=== PATIENT | female | born 1995 | race African-American/Black ===

== ENCOUNTER 2018-05-09 16:27 | Inpatient (IN) ==
[2018-05-09] MEDS ORDERED: Sod Chloride 0.9% Inj 1,000 ML IV.SIG SCH (17:30)
[2018-05-09] MEDS ORDERED: HYDROmorphone PF Inj 1 MG/ML Ampul IV.PUSH ONE (17:30)
--- NOTE | 2018-05-09 17:37 | ED ---
HPI General Chief complaint: Sickle Cell Stated complaint: sickle cell Time Seen by Provider: 05/09/18 17:16 Source: patient and RN notes reviewed Mode of arrival: wheelchair Limitations: no limitations History of Present Illness HPI narrative: 23-year-old female presents to the emergency department for evaluation of low back pain that started this morning. Patient's currently states her pain is 9/10. She denies any trauma. Patient has history of sickle cell disease. She states that she gets pain in several different locations, but has had pain here before. Patient reports difficulty ambulating secondary to the pain. Patient is currently living in [place]. 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 Patient's takes hydrocodone at home for pain. She took this earlier with no improvement. She denies any urinary symptoms. No fevers or chills. No history of IV drug use. No loss of bowel or bladder control. No saddle anesthesias. Patient denies . Moderate severity. Onset (ago): hour(s) Location: back Radiation: non-radiation Severity: moderate Severity scale (1-10): 9 Quality: aching and sharp Pain Consistency: constant Relieving factors: none Exacerbating factors: none Associated symptoms: Reports denies other symptoms; Denies confusion, chest pain , cough, diaphoresis, fever/chills, headaches, loss of appetite, malaise, nausea /vomiting, rash, seizure, shortness of breath, syncope and weakness Treatments prior to arrival: Reports other (Hydrocodone) Related Data Home Medications Medication Instructions Recorded Confirmed folic acid 1 mg PO DAILY 05/09/18 05/09/18 gabapentin 300 mg PO DAILY 05/09/18 05/09/18 hydroxyurea (sickle cell) 1,000 mg PO DAILY 05/09/18 05/09/18 Allergies Allergy/AdvReac Type Severity Reaction Status Date / Time No Known Allergies Allergy Verified 05/09/18 18:40 Review of Systems ROS: all other systems reviewed are negative [facility] Medical History Medical History Pneumonia (Acute) Pneumonia affecting in first trimester (Acute) Sickle cell anemia (Acute) Social History Social History Substance History: No History of Abuse Second Hand Smoke Exposure: No Smoking Status: Never smoker How Often Do You Have a Drink Containing Alcohol: Never Recent Travel in [facility] within the Last 8 Weeks: No Recent Out of Country Travel within the Last 8 Weeks: No Exam Narrative Exam Narrative: GENERAL: Well-nourished, well-developed female patient, afebrile. SKIN: Focused skin assessment warm/dry. No rashes. HEAD: Normocephalic. Atraumatic. EYES: No scleral icterus. No injection or drainage ENT: Mucosa pink and moist. No erythema or exudates. No uvular edema. No uvular , palatal, or tonsillar deviation. Airway patent. Nasal turbinates appear normal without nasal blood, purulent drainage or septal hematoma. Bilateral tympanic membranes clear without erythema or perforation. NECK: Supple, trachea midline. No JVD or lymphadenopathy. CARDIOVASCULAR: Regular rate and rhythm without murmurs, gallops, or rubs. Bilateral radial and pedal pulses are 2+ RESPIRATORY: Breath sounds equal bilaterally. No accessory muscle use. Lung sounds are clear to auscultation GASTROINTESTINAL: Abdomen soft, non-tender, nondistended. MUSCULOSKELETAL: No cyanosis, or edema. Bilateral upper and lower extremity strength 5/5. All extremities are neurovascularly intact. BACK: No obvious deformity. No CVA tenderness. Patient has tenderness over midline lumbar spine, bilateral lumbar paraspinal musculature. Course Initial Documented Vital Signs Temperature 98.7 F 05/09/18 16:31 Pulse Rate 84 05/09/18 16:31 Respiratory Rate 17 05/09/18 16:31 Blood Pressure 120/54 L 05/09/18 16:31 Pulse Oximetry 97 05/09/18 16:31 Last Documented Vital Signs Temperature 98.7 F 05/09/18 16:31 Pulse Rate 80 05/09/18 18:33 Respiratory Rate 18 05/09/18 18:33 Blood Pressure 99/57 L 05/09/18 18:33 Pulse Oximetry 95 05/09/18 18:33 Medical Decision Making [facility] Narrative Medical decision making narrative: 23-year-old female with history of sickle cell disease presents to the emergency department for evaluation of low back pain since this morning. IV access is obtained. CBC, CMP, UA, urine , reticulocyte count are ordered and pending. Patient is given normal saline 1 L IV bolus, Dilaudid 0.5 mg IV, Zofran 4 mg IV. CBC shows hgb of 9.2, hct 26.8. CMP shows no acute abnormality. Retic count is 8.4; absolute retic is 261.9. UA is negative for acute infection. UPT is negative. Patient is given additional ketorolac 30 mg IV, hydrocodone 5/325 mg, 2nd L IV NS. Upon re-examination, patient still report significant pain, difficulty ambulating. Patient will be admitted for observation for sickle cell. Dr. Gooden accepted admission. Medical Screen Exam Complete: Yes Emergency Medical Condition: Yes Differential Diagnosis Differential Diagnosis: Sickle cell crisis versus anemia versus UTI Medical Records Medical records reviewed: Yes I reviewed the patient's medical records. Lab Data Result diagrams: 05/09/18 17:40 05/09/18 17:40 POC Results POC Urine Results Negative Lab Results 05/09/18 05/09/18 05/09/18 Range/Units 17:40 17:40 19:48 WBC 8.9 (4.0-11.0) th/mm3 RBC 3.11 L (4.00-5.30) mil/mm3 Hgb 9.2 L (11.6-15.3) gm/dL Hct 26.8 L (35.0-46.0) % MCV 86.2 (80.0-100.0) fL MCH 29.4 (27.0-34.0) pg MCHC 34.2 (32.0-36.0) % RDW 18.6 H (11.6-17.2) % Plt Count 499 H (150-450) th/mm3 MPV 7.8 (7.0-11.0) fL Prelim Diff (Auto) Slide review pending Neut % (Auto) 48.2 (16.0-70.0) % Lymph % (Auto) 43.3 (9.0-44.0) % [place] % (Auto) 6.7 (0.0-8.0) % Eos % (Auto) 1.1 (0.0-4.0) % Baso % (Auto) 0.7 (0.0-2.0) % Neut # (Auto) 4.3 (1.8-7.7) th/mm3 Lymph # (Auto) 3.8 (1.0-4.8) th/mm3 [place] # (Auto) 0.6 (0.0-0.9) th/mm3 Eos # (Auto) 0.1 (0.0-0.4) th/mm3 Baso # (Auto) 0.1 (0.0-0.2) th/mm3 WBC Differential Manual diff final Seg Neuts % (Manual) 49 (16-70) % Lymphocytes % (Manual) 44 (9-44) % Monocytes % (Manual) 5 (0-8) % Eosinophils % (Manual) 2 (0-4) % Abs Neuts (Manual) 4.4 (1.8-7.7) th/mm3 Nucleated RBCs/100 WBC 2 H (0-0) /100 WBC Differential Comment . Platelet Estimate High H (Normal) Platelet Morphology Normal (Normal) Sickle Cells 2+ H (None) Target Cells 2+ H (None) [place] Bodies Present H (None) Retic Count 8.4 H (0.4-3.0) % Absolute Retic 261.9 H (20.0-150.0) mil/L Sodium 140 (136-145) meq/L Potassium 3.7 (3.5-5.1) meq/L Chloride 106 (98-107) meq/L Carbon Dioxide 27.3 (21.0-32.0) meq/L Anion Gap 7 (5-15) meq/L BUN 6 L (7-18) mg/dL Creatinine 0.57 (0.50-1.00) mg/dL Estimated GFR Greater than 89 (>89) mL/min Random Glucose 80 (74-106) mg/dL Calcium 8.5 (8.5-10.1) mg/dL Total Bilirubin 1.7 H (0.2-1.0) mg/dL AST 27 (15-37) U/L ALT 20 (10-53) U/L Alkaline Phosphatase 72 (45-117) U/L Total Protein 7.3 (6.4-8.2) g/dL Albumin 4.3 (3.4-5.0) g/dL Urine Color Yellow (Yellw/Straw) Urine Clarity Clear (Clear) Urine pH 5.0 (5.0-8.5) Ur Specific [place] 1.009 (1.002-1.035) Urine Protein Negative (Neg-Trace) mg/dL Urine Glucose (UA) Negative (Negative) mg/dL Urine Ketones Negative (Negative) mg/dL Urine Occult Blood Negative (Negative) Urine Nitrate Negative (Negative) Urine Bilirubin Negative (Negative) Urine Urobilinogen Less than 2 (Less than 2) mg/dL Ur Leukocyte Esterase Negative (Negative) Urine RBC Less than 1 (0-3) /hpf Urine WBC 1 (0-5) /hpf Ur Squamous Epith Cells 1 (0-5) /hpf Urine Mucus Few H (Occasional) /lpf Micro UA Comment Culture not ind Ur Microscopic Review Not Reportable Urine Culture Comments Culture not ind Discharge Plan Discharge Disposition Patient Disposition: ED Admit(ED Internal Use Only) Discharge Order Discharge Orders: ED Use Only Admit Order (Routine); Ordered 05/09/18 Ordered By: Keerthi Grijalva Discharge Details Diagnosis: Acute sickle cell crisis Physicians Team ED Provider: Maira Crowder ED Midlevel Provider: Keerthi Grijalva Primary Care Provider: UNKNOWN, Rxs /Orders / Referrals /Forms Prescriptions: No Action gabapentin 300 mg Capsule 300 mg PO DAILY RF: 0 folic acid 1 mg Tablet 1 mg PO DAILY RF: 0 hydroxyurea (sickle cell) 1,000 mg Tablet 1,000 mg PO DAILY RF: 0 Status ED Status: Admitted Observation Patient
[2018-05-09 18:28] LABS: Baso # (Auto) 0.1 th/mm3 (0.0-0.2); Baso % (Auto) 0.7 % (0.0-2.0); Eos # (Auto) 0.1 th/mm3 (0.0-0.4); Eos % (Auto) 1.1 % (0.0-4.0); Hematocrit 26.8 % (35.0-46.0); Hemoglobin 9.2 gm/dL (11.6-15.3); Lymph # (Auto) 3.8 th/mm3 (1.0-4.8); Lymph % (Auto) 43.3 % (9.0-44.0); Mean Corpuscular HGB Conc 34.2 % (32.0-36.0); Mean Corpuscular Hemoglobin 29.4 pg (27.0-34.0); Mean Corpuscular Volume 86.2 fL (80.0-100.0); Mean Platelet Volume 7.8 fL (7.0-11.0); Mono # (Auto) 0.6 th/mm3 (0.0-0.9); Mono % (Auto) 6.7 % (0.0-8.0); Neut # (Auto) 4.3 th/mm3 (1.8-7.7); Neut % (Auto) 48.2 % (16.0-70.0); Platelet Count 499 th/mm3 (150-450); Red Blood Count 3.11 mil/mm3 (4.00-5.30); Red Cell Distribution Width 18.6 % (11.6-17.2); Reticulocyte Percent 8.4 % (0.4-3.0); White Blood Count 8.9 th/mm3 (4.0-11.0)
[2018-05-09 18:33] LABS: Alkaline Phosphatase 72 U/L (45-117); Total Protein 7.3 g/dL (6.4-8.2)
[2018-05-09 18:48] LABS: Alanine Aminotransferase 20 U/L (10-53); Albumin 4.3 g/dL (3.4-5.0); Anion Gap 7 meq/L (5-15); Aspartate Aminotransferase 27 U/L (15-37); Blood Urea Nitrogen 6 mg/dL (7-18); Calcium 8.5 mg/dL (8.5-10.1); Carbon Dioxide 27.3 meq/L (21.0-32.0); Chloride 106 meq/L (98-107); Glomerular Filtration Rate Greater Than 89 mL/min (>89); Glucose,Random 80 mg/dL (74-106); Potassium 3.7 meq/L (3.5-5.1); Sodium 140 meq/L (136-145)
[2018-05-09 19:13] LABS: Eosinophils 2 % (0-4); Lymphocytes 44 % (9-44); Monocytes 5 % (0-8); Tallied Nucleated RBC 2 (0-0)
[2018-05-09 19:14] LABS: Sickle Cells 2+
[2018-05-09 19:15] LABS: Howell-Jolly Bodies Present; Target Cells 2+
[2018-05-09 19:16] LABS: Platelet Morphology Normal (Normal)
[2018-05-09] MEDS ORDERED: Ketorolac Inj 30 MG/ML (IVP) Vial IV.PUSH ONE (19:46)
[2018-05-09] MEDS ORDERED: Sod Chloride 0.9% Inj 1,000 ML IV.SIG ONE (19:46)
[2018-05-09 20:07] LABS: Bilirubin,Urine Negative (Negative); Clarity,Urine Clear (Clear); Color,Urine Yellow (Yellw/Straw); Glucose,Urine (UA) Negative (Negative); Leukocyte Esterase,Urine Negative (Negative); Mucus,Urine Few /lpf (Occasional); Nitrite,Urine Negative (Negative); Specific Gravity,Urine 1.009 (1.002-1.035); Squamous Epithelial Cell,Urine 1 /hpf (0-5)
[2018-05-09] MEDS ORDERED: Acetaminophen 325 MG Tablet PO PRN (21:22)
[2018-05-09] MEDS ORDERED: Naloxone Inj 0.4 MG/ML Vial IV.PUSH PRN (21:22)
[2018-05-09] MEDS: HYDROmorphone PF Inj 1 MG/ML Ampul IV.PUSH PRN (23:26)
[2018-05-09] MEDS: Sod Chloride 0.9% Inj 1,000 ML IV.CONT SCH (23:26)
[2018-05-09] MEDS: Enoxaparin Inj 40 MG/0.4 ML Syringe SQ SCH (23:26)
--- NOTE | 2018-05-09 23:26 | P.HPIM ---
History of Present Illness Service: [facility] Primary Care Physician: UNKNOWN Chief Complaint: sickle cell pain History of Present Illness: 23 female with a history of sickle cell presented to the ER with complaints of back pain. She states the pain is a 8/10, constant , throbbing, to her lower back that radiates to her tail bone, with no associated symptoms, worse with movement and better with pain medications. She tried taking Motrin and oxycodone prior to coming to the ER with no relief. She denies any chest pain, sob, fever or chills. She is home on vacation from school and her engineer system administrator is in [place]. Inpatient Certification Inpatient Certification: I certify that the inpatient services were ordered in accordance with Medicare regulations governing the order. This includes certification that hospital inpatient services are reasonable and necessary and in the case of services not specified as inpatient-only under 42 CFR 419.22(n), that they are appropriately provided as inpatient services in accordance to with the 2-midnight benchmark under 43 CFR 412.3(e) Estimated Total Length of Stay (Days): 2 Plans for Post Hospital Care: Home Review of Systems Review of Systems: all other systems reviewed are negative [facility] Medical History Medical History Pneumonia (Acute) Pneumonia affecting in first trimester (Acute) Sickle cell anemia (Acute) Surgical History Surgical History Hx of cholecystectomy (Acute) Family History Family History Mother Heart disease Sickle cell disease Social History Social History Substance History: No History of Abuse Second Hand Smoke Exposure: No Smoking Status: Never smoker How Often Do You Have a Drink Containing Alcohol: Never Recent Travel in [facility] within the Last 8 Weeks: No Recent Out of Country Travel within the Last 8 Weeks: No Immunization History Tetanus Immunization: <5 Years Medications and Allergies Allergies Allergy/AdvReac Type Severity Reaction Status Date / Time No Known Allergies Allergy Verified 05/09/18 18:40 Home Medications Medication Instructions Recorded Confirmed Type folic acid 1 mg PO DAILY 05/09/18 05/09/18 History gabapentin 300 mg PO DAILY 05/09/18 05/09/18 History hydroxyurea (sickle cell) 1,000 mg PO DAILY 05/09/18 05/09/18 History Active Medications: Active Medications Acetaminophen (Tylenol) 650 mg PO Q4H PRN PRN Reason: Temp > 100.4 Hydrocodone Bitart/Acetaminophen ([place] 5/325) 1 tab PO Q4H PRN PRN Reason: PAIN SCALE 3 TO 5 Al Hydroxide/Mg Hydroxide (Milk Of Colette Fuchs) 30 ml PO Q12H PRN PRN Reason: Mild Constipation Docusate Sodium (Colace) 100 mg PO TID CHANCE Enoxaparin Sodium (Lovenox Inj) 40 mg SQ Q24H CHANCE Hydromorphone HCl (Dilaudid Pf Inj) 1 mg IV.PUSH Q3H PRN PRN Reason: PAIN 6-10;IF UNABLE TO TAKE PO Sodium Chloride (Ns Inj) 1,000 mls @ 200 mls/hr IV.CONT .Q5H CHANCE Naloxone HCl (Narcan Inj) 0.4 mg IV.PUSH UNSCH PRN PRN Reason: SEE LABEL COMMENTS Ondansetron HCl (Zofran Inj) 4 mg IV.PUSH Q6H PRN PRN Reason: NAUSEA OR VOMITING Sodium Chloride (Ns Flush) 2 ml IV.FLUSH PRN PRN PRN Reason: FLUSH AFTER USING IV ACCESS Sodium Chloride (Ns Flush) 2 ml IV.FLUSH BID CHANCE Sodium Chloride (Ns Flush) 2 ml IV.FLUSH PRN PRN PRN Reason: FLUSH AFTER USING IV ACCESS Physical Exam Vital signs: Last Vital Signs Temp 98.7 F 05/09/18 16:31 Pulse 80 05/09/18 18:33 Resp 18 05/09/18 18:33 BP 99/57 L 05/09/18 18:33 Pulse Ox 95 05/09/18 18:33 Intake & Output 05/07/18 05/08/18 05/09/18 05/10/18 06:59 06:59 06:59 06:59 Intake Total 1999 Balance 1999 Weight 49.895 kg Narrative: GENERAL: well nourished patient in no distress SKIN: Warm and dry. No open lesions HEAD: Normocephalic. EYES: No scleral icterus. No injection or drainage. NECK: Supple, trachea midline. No JVD or lymphadenopathy. CARDIOVASCULAR: Regular rate and rhythm without murmurs, gallops, or rubs. RESPIRATORY: Breath sounds equal bilaterally. No accessory muscle use. GASTROINTESTINAL: Abdomen soft, non-tender, nondistended. MUSCULOSKELETAL: No cyanosis, or edema. Results Labs CBC & Chem 7: 05/09/18 17:40 05/09/18 17:40 Caprini VTE Risk Assessment Caprini VTE Risk Assessment: No/Low Risk (score <= 1) Saerini Risk Assessment Model: Point Value = 1 Point Value = 2 Point Value = 3 Point Value = 5 Age 41-60 Minor surgery BMI > 25 kg/m2 Swollen legs Varicose veins or History of unexplained or recurrent spontaneous Oral contraceptives or hormone replacement Sepsis (< 1 month) Serious lung disease, including pneumonia (< 1 month) Abnormal pulmonary function Acute myocardial infarction Congestive heart failure (< 1 month) History of inflammatory bowel disease Medical patient at bed rest Age 61-74 Arthroscopic surgery Major open surgery (> 45 min) Laparoscopic surgery (> 45 min) Malignancy Confined to bed (> 72 hours) Immobilizing plaster cast Central venous access Age >= 75 History of VTE Family history of VTE Factor V Leiden Prothrombin [id number] Lupus anticoagulant Anticardiolipin antibodies Elevated serum homocysteine Heparin-induced thrombocytopenia Other congenital or acquired thrombophilia Stroke (< 1 month) Elective arthroplasty Hip, pelvis, or leg fracture Acute spinal cord injury (< 1 month) Prophylaxis Regimen: Total Risk Factor Score Risk Level Prophylaxis Regimen 0-1 Low Early ambulation 2 Moderate Order ONE of the following: *Sequential Compression Device (SCD) *Heparin 5000 units SQ BID 3-4 Higher Order ONE of the following medications: *Heparin 5000 units SQ TID *Enoxaparin/Lovenox 40 mg SQ daily (WT < 150 kg, CrCl > 30 mL/min) *Enoxaparin/Lovenox 30 mg SQ daily (WT < 150 kg, CrCl > 10-29 mL/min) *Enoxaparin/Lovenox 30 mg SQ BID (WT < 150 kg, CrCl > 30 mL/min) AND/OR *Sequential Compression Device (SCD) 5 or more Highest Order ONE of the following medications: *Heparin 5000 units SQ TID (Preferred with Epidurals) *Enoxaparin/Lovenox 40 mg SQ daily (WT < 150 kg, CrCl > 30 mL/min) *Enoxaparin/Lovenox 30 mg SQ daily (WT < 150 kg, CrCl > 10-29 mL/min) *Enoxaparin/Lovenox 30 mg SQ BID (WT < 150 kg, CrCl > 30 mL/min) AND *Sequential Compression Device (SCD) Assessment and Plan Plan 23 female with a history of sickle cell presented to the ER with complaints of back pain. Sickle cell crisis, acute -Pain management with Dilaudid IV -Cont home medications folic acid, gabapentin, and hydroxyurea -Will consult hematology if needed DVT prophylaxis: SCDs Discussed Condition With: Patient and RN
[2018-05-10] MEDS: HYDROmorphone PF Inj 1 MG/ML Ampul IV.PUSH PRN ×6 (03:19→23:19)
[2018-05-10] MEDS: Sod Chloride 0.9% Inj 1,000 ML IV.CONT SCH ×4 (03:34→21:08)
[2018-05-10 07:20] LABS: Baso # (Auto) 0.1 th/mm3 (0.0-0.2); Baso % (Auto) 0.6 % (0.0-2.0); Eos # (Auto) 0.1 th/mm3 (0.0-0.4); Eos % (Auto) 0.9 % (0.0-4.0); Hematocrit 23.1 % (35.0-46.0); Hemoglobin 8.1 gm/dL (11.6-15.3); Lymph # (Auto) 4.3 th/mm3 (1.0-4.8); Lymph % (Auto) 35.8 % (9.0-44.0); Mean Corpuscular HGB Conc 34.9 % (32.0-36.0); Mean Corpuscular Hemoglobin 30.1 pg (27.0-34.0); Mean Corpuscular Volume 86.2 fL (80.0-100.0); Mean Platelet Volume 7.6 fL (7.0-11.0); Mono % (Auto) 8.1 % (0.0-8.0); Neut # (Auto) 6.6 th/mm3 (1.8-7.7); Neut % (Auto) 54.6 % (16.0-70.0); Platelet Count 371 th/mm3 (150-450); Red Blood Count 2.68 mil/mm3 (4.00-5.30); Red Cell Distribution Width 20.1 % (11.6-17.2); White Blood Count 12.1 th/mm3 (4.0-11.0)
[2018-05-10 07:45] LABS: Anion Gap 7 meq/L (5-15); Blood Urea Nitrogen 5 mg/dL (7-18); Calcium 7.5 mg/dL (8.5-10.1); Chloride 115 meq/L (98-107); Glomerular Filtration Rate Greater Than 89 mL/min (>89); Glucose,Random 80 mg/dL (74-106); Potassium 4.3 meq/L (3.5-5.1); Sodium 144 meq/L (136-145)
[2018-05-10 07:54] LABS: Platelet Estimate Normal (Normal); Platelet Morphology Normal (Normal); Sickle Cells 1+; Target Cells 1+
[2018-05-10] MEDS: Docusate Sodium 100 MG Capsule PO SCH ×3 (08:09→17:23)
[2018-05-10] MEDS: Hydroxyurea 500 MG Capsule PO SCH (08:09)
[2018-05-10] MEDS: Folic Acid 1 MG Tablet PO SCH (08:09)
[2018-05-10] MEDS: Gabapentin 300 MG Capsule PO SCH (08:09)
--- NOTE | 2018-05-10 11:22 | P.PNIM ---
Subjective Interval history: Chief Complaint: sickle cell pain History of Present Illness: 23 female with a history of sickle cell presented to the ER with complaints of back pain. She states the pain is a 8/10, constant , throbbing, to her lower back that radiates to her tail bone, with no associated symptoms, worse with movement and better with pain medications. She tried taking Motrin and oxycodone prior to coming to the ER with no relief. She denies any chest pain, sob, fever or chills. She is home on vacation from school and her voltage inspector is in [place]. 1-4 patient states her pain is somewhat better still in her tailbone area. Still needs to take IV pain medications Discussed with RN and patient and family Will get a.m. labs Continue pain control Hopefully improves and can be discharged in next 24-48 hours Physical Exam Vital signs: Vital Signs 05/09/18 16:31 05/09/18 16:33 05/09/18 17:30 Temperature 98.7 F Pulse Rate 84 82 Respiratory Rate 17 20 Blood Pressure 120/54 L 102/55 L Pulse Oximetry 97 97 98 05/09/18 18:33 05/09/18 23:00 05/10/18 01:16 Temperature Pulse Rate 80 68 Respiratory Rate 18 18 18 Blood Pressure 99/57 L 98/55 L Pulse Oximetry 95 05/10/18 01:17 05/10/18 01:26 05/10/18 04:00 Temperature 98.2 F 97.8 F Pulse Rate 72 82 Respiratory Rate 18 15 15 Blood Pressure 103/58 L 92/52 L Pulse Oximetry 94 L 95 05/10/18 08:00 Temperature 98.0 F Pulse Rate 70 Respiratory Rate 18 Blood Pressure 94/52 L Pulse Oximetry 94 L Intake & Output 05/09/18 05/10/18 05/10/18 18:59 06:59 18:59 Intake Total 3450 / 3450 1000 / 1000 Balance 3450 / 3450 1000 / 1000 Weight 49.895 kg 52.6 kg Intake: IV 3000 / 3000 1000 / 1000 NS Inj 1,000 ML @ 200 mls/hr IV 1000 / 1000 1000 / 1000 .CONT .Q5H CHANCE Rx#:[id number] NS Inj 1,000 ML @ Wide Open IV. 1999 / 1999 SIG BOLUS ONE Rx#:[id number] Oral 450 / 450 Other: # Voids 1 Narrative: GENERAL: well nourished patient in no distress SKIN: Warm and dry. No open lesions HEAD: Normocephalic. EYES: No scleral icterus. No injection or drainage. Oral mucosa is moist tongue is midline NECK: Supple, trachea midline. No JVD or lymphadenopathy. CARDIOVASCULAR: Regular rate and rhythm without murmurs, gallops, or rubs. S1- S2 no S3 or S4 RESPIRATORY: Breath sounds equal bilaterally. No accessory muscle use. GASTROINTESTINAL: Abdomen soft, non-tender, nondistended. MUSCULOSKELETAL: No cyanosis, or edema. Insight and judgment is good Mood and behavior is appropriate Results - Labs CBC & Chem 7: 05/10/18 07:04 05/10/18 07:04 Laboratory Results - last 24 hr 05/09/18 05/09/18 05/09/18 17:40 17:40 19:48 WBC 8.9 RBC 3.11 L Hgb 9.2 L Hct 26.8 L MCV 86.2 MCH 29.4 MCHC 34.2 RDW 18.6 H Plt Count 499 H MPV 7.8 Prelim Diff (Auto) Slide review pending Neut % (Auto) 48.2 Lymph % (Auto) 43.3 [place] % (Auto) 6.7 Eos % (Auto) 1.1 Baso % (Auto) 0.7 Neut # (Auto) 4.3 Lymph # (Auto) 3.8 [place] # (Auto) 0.6 Eos # (Auto) 0.1 Baso # (Auto) 0.1 WBC Differential Manual diff final Diff Scan Seg Neuts % (Manual) 49 Lymphocytes % (Manual) 44 Monocytes % (Manual) 5 Eosinophils % (Manual) 2 Abs Neuts (Manual) 4.4 Nucleated RBCs/100 WBC 2 H Differential Comment . Platelet Estimate High H Platelet Morphology Normal Sickle Cells 2+ H Target Cells 2+ H [place] Bodies Present H Retic Count 8.4 H Absolute Retic 261.9 H Sodium 140 Potassium 3.7 Chloride 106 Carbon Dioxide 27.3 Anion Gap 7 BUN 6 L Creatinine 0.57 Estimated GFR Greater than 89 Random Glucose 80 Calcium 8.5 Total Bilirubin 1.7 H AST 27 ALT 20 Alkaline Phosphatase 72 Total Protein 7.3 Albumin 4.3 Urine Color Yellow Urine Clarity Clear Urine pH 5.0 Ur Specific [place] 1.009 Urine Protein Negative Urine Glucose (UA) Negative Urine Ketones Negative Urine Occult Blood Negative Urine Nitrate Negative Urine Bilirubin Negative Urine Urobilinogen Less than 2 Ur Leukocyte Esterase Negative Urine RBC Less than 1 Urine WBC 1 Ur Squamous Epith Cells 1 Urine Mucus Few H Micro UA Comment Culture not ind Ur Microscopic Review Not Reportable Urine Culture Comments Culture not ind 05/10/18 05/10/18 07:04 07:04 WBC 12.1 H RBC 2.68 L Hgb 8.1 L Hct 23.1 L MCV 86.2 MCH 30.1 MCHC 34.9 RDW 20.1 H Plt Count 371 MPV 7.6 Prelim Diff (Auto) Slide review pending Neut % (Auto) 54.6 Lymph % (Auto) 35.8 [place] % (Auto) 8.1 H Eos % (Auto) 0.9 Baso % (Auto) 0.6 Neut # (Auto) 6.6 Lymph # (Auto) 4.3 [place] # (Auto) 1.0 H Eos # (Auto) 0.1 Baso # (Auto) 0.1 WBC Differential . Diff Scan Auto diff confirmed Seg Neuts % (Manual) Lymphocytes % (Manual) Monocytes % (Manual) Eosinophils % (Manual) Abs Neuts (Manual) Nucleated RBCs/100 WBC Differential Comment . Platelet Estimate Normal Platelet Morphology Normal Sickle Cells 1+ H Target Cells 1+ H [place] Bodies Retic Count Absolute Retic Sodium 144 Potassium 4.3 Chloride 115 H D Carbon Dioxide 22.0 Anion Gap 7 BUN 5 L Creatinine 0.51 Estimated GFR Greater than 89 Random Glucose 80 Calcium 7.5 L D Total Bilirubin AST ALT Alkaline Phosphatase Total Protein Albumin Urine Color Urine Clarity Urine pH Ur Specific [place] Urine Protein Urine Glucose (UA) Urine Ketones Urine Occult Blood Urine Nitrate Urine Bilirubin Urine Urobilinogen Ur Leukocyte Esterase Urine RBC Urine WBC Ur Squamous Epith Cells Urine Mucus Micro UA Comment Ur Microscopic Review Urine Culture Comments - Procedures None Assessment and Plan - Plan 23 female with a history of sickle cell presented to the ER with complaints of back pain. Sickle cell crisis, acute -Pain management with Dilaudid IV -Cont home medications folic acid, gabapentin, and hydroxyurea -Will consult hematology if needed Absolute reticulocyte count is elevated Continue fluids and pain control Leukocytosis continue to monitor with a.m. labs DVT prophylaxis: SCDs Discussed Condition With: Patient and RN Code Status: FULL CODE Discussed Condition With: RN AND PT AND FAMILY Discharge Planning: ONCE PAIN IS CONTROLLED AND FEELING BETTER
[2018-05-10] MEDS: Enoxaparin Inj 40 MG/0.4 ML Syringe SQ SCH (20:35)
[2018-05-11] MEDS: Sod Chloride 0.9% Inj 1,000 ML IV.CONT SCH ×5 (01:20→19:36)
[2018-05-11] MEDS: HYDROmorphone PF Inj 1 MG/ML Ampul IV.PUSH PRN ×5 (04:51→22:37)
[2018-05-11 06:57] LABS: Baso # (Auto) 0.1 th/mm3 (0.0-0.2); Baso % (Auto) 0.7 % (0.0-2.0); Eos # (Auto) 0.1 th/mm3 (0.0-0.4); Eos % (Auto) 0.9 % (0.0-4.0); Hematocrit 23.8 % (35.0-46.0); Hemoglobin 8.4 gm/dL (11.6-15.3); Lymph % (Auto) 24.4 % (9.0-44.0); Mean Corpuscular HGB Conc 35.4 % (32.0-36.0); Mean Corpuscular Hemoglobin 30.8 pg (27.0-34.0); Mean Corpuscular Volume 86.9 fL (80.0-100.0); Mono # (Auto) 1.3 th/mm3 (0.0-0.9); Mono % (Auto) 10.4 % (0.0-8.0); Neut # (Auto) 7.7 th/mm3 (1.8-7.7); Neut % (Auto) 63.6 % (16.0-70.0); Platelet Count 427 th/mm3 (150-450); Red Blood Count 2.74 mil/mm3 (4.00-5.30); Red Cell Distribution Width 19.9 % (11.6-17.2); White Blood Count 12.2 th/mm3 (4.0-11.0)
[2018-05-11 07:24] LABS: Alanine Aminotransferase 50 U/L (10-53); Albumin 3.8 g/dL (3.4-5.0); Alkaline Phosphatase 92 U/L (45-117); Anion Gap 8 meq/L (5-15); Aspartate Aminotransferase 62 U/L (15-37); Blood Urea Nitrogen 6 mg/dL (7-18); Calcium 8.4 mg/dL (8.5-10.1); Chloride 107 meq/L (98-107); Free T4 (Free Thyroxine) 1.05 ng/dL (0.76-1.46); Glomerular Filtration Rate Greater Than 89 mL/min (>89); Glucose,Random 72 mg/dL (74-106); Magnesium 2.2 mg/dL (1.5-2.5); Phosphorus 3.9 mg/dL (2.5-4.9); Sodium 141 meq/L (136-145); Thyroid Stimulating Hormone 0.636 uIU/mL (0.358-3.740); Total Protein 7.1 g/dL (6.4-8.2)
[2018-05-11 07:25] LABS: Potassium 4.8 meq/L (3.5-5.1)
[2018-05-11] MEDS: Docusate Sodium 100 MG Capsule PO SCH ×3 (08:33→18:07)
[2018-05-11] MEDS: Hydroxyurea 500 MG Capsule PO SCH (08:33)
[2018-05-11] MEDS: Gabapentin 300 MG Capsule PO SCH (08:33)
[2018-05-11] MEDS: Folic Acid 1 MG Tablet PO SCH (08:33)
[2018-05-11 10:11] LABS: Eosinophils 1 % (0-4); Lymphocytes 24 % (9-44); Monocytes 6 % (0-8); Ovalocytes 1+; Sickle Cells 1+; Tallied Nucleated RBC 10 (0-0); Target Cells 1+
[2018-05-11 10:12] LABS: Platelet Estimate Normal (Normal)
--- NOTE | 2018-05-11 12:23 | P.PNIM ---
Subjective Interval history: Joint pains and lower back pain remain. Pain manageable with pain treatments. Patient's hemoglobin level has changed from 8.1 to 8.4 today which is not a significant shift in either direction. She does not feel improved compared to previous day. Not yet stable for discharge. Physical Exam Vital signs: Last Vital Signs Temp 98.6 F 05/11/18 08:00 Pulse 82 05/11/18 08:00 Resp 14 05/11/18 08:00 BP 99/55 L 05/11/18 08:00 Pulse Ox 92 L 05/11/18 08:00 Intake & Output 05/09/18 05/10/18 05/11/18 05/12/18 06:59 06:59 06:59 06:59 Intake Total 3450 / 3450 2600 / 2600 721 / 721 Balance 3450 / 3450 2600 / 2600 721 / 721 Weight 52.6 kg Narrative: GENERAL: NAD, A&Ox3 HEAD: Normocephalic. NECK: Supple, trachea midline. No lymphadenopathy. EYES: No scleral icterus. No injection or drainage. CARDIOVASCULAR: Regular rate and rhythm without murmurs, gallops, or rubs. RESPIRATORY: Breath sounds equal bilaterally. No accessory muscle use. GASTROINTESTINAL: Abdomen soft, non-tender, nondistended. MUSCULOSKELETAL: No cyanosis, or edema. No significant swelling of lower back. SKIN: Warm and dry. NEURO: No focal neurological deficits. Results Labs CBC & Chem 7: 05/11/18 04:41 05/11/18 04:41 Procedures Procedures: None Assessment and Plan Plan 23-year-old female admitted secondary to acute sickle cell crisis. Acute sickle cell crisis Follow clinically for improvement Not yet improved Follow CBC Hemoglobin not significantly increased in count yet Continue IV hydration Continue pain control Naproxen Leukocytosis Likely reactive Monitor CBC DVT prophylaxis SCDs Progress Note: Quality VTE Deep Vein Thrombosis/Pulmonary Embolism Present on Admission: No
[2018-05-11] MEDS ORDERED: Naproxen 250 MG Tablet PO ONE (12:26)
[2018-05-11] MEDS: Enoxaparin Inj 40 MG/0.4 ML Syringe SQ SCH ×2 (19:35→21:43)
[2018-05-11] MEDS: Naproxen 250 MG Tablet PO SCH ×2 (19:36→21:43)
[2018-05-12] MEDS: HYDROmorphone PF Inj 1 MG/ML Ampul IV.PUSH PRN ×7 (01:34→23:37)
[2018-05-12] MEDS: Sod Chloride 0.9% Inj 1,000 ML IV.CONT SCH ×2 (04:47→12:22)
[2018-05-12 06:44] LABS: Baso % (Auto) 0.4 % (0.0-2.0); Eos # (Auto) 0.1 th/mm3 (0.0-0.4); Eos % (Auto) 1.1 % (0.0-4.0); Hemoglobin 7.9 gm/dL (11.6-15.3); Lymph # (Auto) 3.8 th/mm3 (1.0-4.8); Lymph % (Auto) 29.2 % (9.0-44.0); Mean Corpuscular HGB Conc 34.3 % (32.0-36.0); Mean Corpuscular Hemoglobin 29.6 pg (27.0-34.0); Mean Corpuscular Volume 86.3 fL (80.0-100.0); Mean Platelet Volume 7.8 fL (7.0-11.0); Mono # (Auto) 1.4 th/mm3 (0.0-0.9); Mono % (Auto) 10.6 % (0.0-8.0); Neut # (Auto) 7.7 th/mm3 (1.8-7.7); Neut % (Auto) 58.7 % (16.0-70.0); Platelet Count 452 th/mm3 (150-450); Red Blood Count 2.67 mil/mm3 (4.00-5.30); Red Cell Distribution Width 20.3 % (11.6-17.2)
[2018-05-12 06:54] LABS: Alanine Aminotransferase 45 U/L (10-53); Albumin 3.7 g/dL (3.4-5.0); Anion Gap 7 meq/L (5-15); Aspartate Aminotransferase 33 U/L (15-37); Blood Urea Nitrogen 4 mg/dL (7-18); Carbon Dioxide 26.2 meq/L (21.0-32.0); Chloride 109 meq/L (98-107); Glomerular Filtration Rate Greater Than 89 mL/min (>89); Glucose,Random 85 mg/dL (74-106); Sodium 142 meq/L (136-145)
[2018-05-12 06:57] LABS: Alkaline Phosphatase 98 U/L (45-117); Total Protein 6.7 g/dL (6.4-8.2)
[2018-05-12] MEDS: Hydroxyurea 500 MG Capsule PO SCH (08:50)
[2018-05-12] MEDS: Naproxen 250 MG Tablet PO SCH ×2 (08:50→20:21)
[2018-05-12] MEDS: Gabapentin 300 MG Capsule PO SCH (08:50)
[2018-05-12] MEDS: Folic Acid 1 MG Tablet PO SCH (08:50)
[2018-05-12] MEDS: Docusate Sodium 100 MG Capsule PO SCH ×3 (08:50→18:03)
--- NOTE | 2018-05-12 11:36 | P.PNIM ---
Subjective Interval history: Pain improved today. This could be related to NSAIDs added yesterday. Patient has decline in hemoglobin currently at 7.9. No other complaints. Physical Exam Vital signs: Last Vital Signs Temp 98.4 F 05/12/18 08:00 Pulse 79 05/12/18 08:00 Resp 19 05/12/18 08:00 BP 100/55 L 05/12/18 08:00 Pulse Ox 94 L 05/12/18 08:00 Intake & Output 05/10/18 05/11/18 05/12/18 05/13/18 06:59 06:59 06:59 06:59 Intake Total 3450 / 3450 2600 / 2600 3353 / 3353 Balance 3450 / 3450 2600 / 2600 3353 / 3353 Weight 52.6 kg 52.6 kg Narrative: GENERAL: NAD, A&Ox3 HEAD: Normocephalic. NECK: Supple, trachea midline. No lymphadenopathy. EYES: No scleral icterus. No injection or drainage. CARDIOVASCULAR: Regular rate and rhythm without murmurs, gallops, or rubs. RESPIRATORY: Breath sounds equal bilaterally. No accessory muscle use. GASTROINTESTINAL: Abdomen soft, non-tender, nondistended. MUSCULOSKELETAL: No cyanosis, or edema. No significant swelling of lower back. SKIN: Warm and dry. NEURO: No focal neurological deficits. Results Labs CBC & Chem 7: 05/12/18 05:37 05/12/18 05:37 Procedures Procedures: None Assessment and Plan Plan 23-year-old female admitted secondary to acute sickle cell crisis. Decline in hemoglobin overnight. Current hemoglobin level 7.9. Will repeat an afternoon hemoglobin level. Continue present treatment as listed below. Consider blood transfusion based on afternoon hemoglobin level. Acute sickle cell crisis Follow clinically for improvement Not yet improved Follow CBC Hemoglobin not significantly increased in count yet Continue IV hydration Continue pain control Naproxen Leukocytosis Likely reactive Monitor CBC DVT prophylaxis SCDs Progress Note: Quality VTE Deep Vein Thrombosis/Pulmonary Embolism Present on Admission: No
[2018-05-12 12:28] LABS: Eosinophils 2 % (0-4); Lymphocytes 30 % (9-44); Metamyelocytes 1 % (0-1); Monocytes 10 % (0-8); Tallied Nucleated RBC 1 (0-0)
[2018-05-12 12:29] LABS: Platelet Morphology Normal (Normal); Polychromasia 2.4 % (0.0-1.9); Sickle Cells 1+; Target Cells 1+
[2018-05-12 16:23] LABS: Hematocrit 22.2 % (35.0-46.0); Hemoglobin 7.8 gm/dL (11.6-15.3)
[2018-05-12] MEDS ORDERED: Sodium Chlor 0.9% Inj 250 ML IV.SIG SCH (18:00)
[2018-05-12] MEDS: Enoxaparin Inj 40 MG/0.4 ML Syringe SQ SCH (20:30)
[2018-05-13] MEDS: HYDROmorphone PF Inj 1 MG/ML Ampul IV.PUSH PRN ×4 (04:45→20:42)
[2018-05-13 05:34] LABS: Baso # (Auto) 0.1 th/mm3 (0.0-0.2); Baso % (Auto) 0.7 % (0.0-2.0); Eos # (Auto) 0.1 th/mm3 (0.0-0.4); Hematocrit 21.2 % (35.0-46.0); Hemoglobin 7.5 gm/dL (11.6-15.3); Lymph # (Auto) 2.9 th/mm3 (1.0-4.8); Lymph % (Auto) 26.4 % (9.0-44.0); Mean Corpuscular HGB Conc 35.4 % (32.0-36.0); Mean Corpuscular Hemoglobin 30.4 pg (27.0-34.0); Mean Platelet Volume 7.8 fL (7.0-11.0); Mono % (Auto) 8.9 % (0.0-8.0); Neut # (Auto) 6.9 th/mm3 (1.8-7.7); Platelet Count 403 th/mm3 (150-450); Red Blood Count 2.47 mil/mm3 (4.00-5.30); Red Cell Distribution Width 19.4 % (11.6-17.2); White Blood Count 10.9 th/mm3 (4.0-11.0)
[2018-05-13 06:06] LABS: Alanine Aminotransferase 34 U/L (10-53); Albumin 3.4 g/dL (3.4-5.0); Anion Gap 7 meq/L (5-15); Aspartate Aminotransferase 23 U/L (15-37); Blood Urea Nitrogen 4 mg/dL (7-18); Calcium 8.1 mg/dL (8.5-10.1); Carbon Dioxide 26.5 meq/L (21.0-32.0); Chloride 110 meq/L (98-107); Glomerular Filtration Rate Greater Than 89 mL/min (>89); Glucose,Random 80 mg/dL (74-106); Potassium 3.7 meq/L (3.5-5.1); Sodium 143 meq/L (136-145)
[2018-05-13 06:08] LABS: Alkaline Phosphatase 85 U/L (45-117); Total Protein 6.4 g/dL (6.4-8.2)
[2018-05-13 06:21] LABS: Platelet Estimate Normal (Normal); Platelet Morphology Normal (Normal)
[2018-05-13 06:22] LABS: Sickle Cells 2+; Target Cells 1+
[2018-05-13] MEDS: Docusate Sodium 100 MG Capsule PO SCH ×3 (08:54→17:06)
[2018-05-13] MEDS: Naproxen 250 MG Tablet PO SCH (08:54)
[2018-05-13] MEDS: Hydroxyurea 500 MG Capsule PO SCH (08:54)
[2018-05-13] MEDS: Gabapentin 300 MG Capsule PO SCH (08:55)
[2018-05-13] MEDS: Folic Acid 1 MG Tablet PO SCH (08:55)
--- NOTE | 2018-05-13 13:39 | P.PN ---
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 in [facility] Physical Exam Vital signs: Vital Signs 05/12/18 16:00 05/12/18 20:00 05/13/18 00:00 Temperature 98.7 F 98.8 F 98.8 F Pulse Rate 80 90 84 Respiratory Rate 19 18 18 Blood Pressure 106/50 L 105/53 L 102/50 L Pulse Oximetry 93 L 95 94 L 05/13/18 08:00 Temperature 98.1 F Pulse Rate 65 Respiratory Rate 15 Blood Pressure 91/47 L Pulse Oximetry 93 L Intake & Output 05/12/18 05/13/18 05/13/18 18:59 06:59 18:59 Intake Total 1000 / 1000 Balance 1000 / 1000 Weight 52.6 kg Intake: IV 1000 / 1000 NS Inj 1,000 ML @ 150 mls/hr IV 1000 / 1000 .CONT .Q6H40M [facility] Rx#:[id number] Other: # Voids 3 Date of Last Bowel Movement 05/09/18 Narrative: GENERAL: NAD, A&Ox3 HEAD: Normocephalic. NECK: Supple, trachea midline. No lymphadenopathy. EYES: No scleral icterus. No injection or drainage. CARDIOVASCULAR: Regular rate and rhythm without murmurs, gallops, or rubs. RESPIRATORY: Breath sounds equal bilaterally. No accessory muscle use. GASTROINTESTINAL: Abdomen soft, non-tender, nondistended. MUSCULOSKELETAL: No cyanosis, or edema. No significant swelling of lower back. SKIN: Warm and dry. NEURO: No focal neurological deficits. Results - Labs CBC & Chem 7: 05/13/18 04:38 05/13/18 04:38 Laboratory Results - last 24 hr 05/12/18 05/12/18 05/13/18 16:01 19:30 04:38 WBC 10.9 RBC 2.47 L Hgb 7.8 L 7.5 L Hct 22.2 L 21.2 L MCV 86.0 MCH 30.4 MCHC 35.4 RDW 19.4 H Plt Count 403 MPV 7.8 Prelim Diff (Auto) Slide review pending Neut % (Auto) 63.0 Lymph % (Auto) 26.4 [place] % (Auto) 8.9 H Eos % (Auto) 1.0 Baso % (Auto) 0.7 Neut # (Auto) 6.9 Lymph # (Auto) 2.9 [place] # (Auto) 1.0 H Eos # (Auto) 0.1 Baso # (Auto) 0.1 WBC Differential . Diff Scan Auto diff confirmed Differential Comment . Platelet Estimate Normal Platelet Morphology Normal Sickle Cells 2+ H Target Cells 1+ H Sodium Potassium Chloride Carbon Dioxide Anion Gap BUN Creatinine Estimated GFR Random Glucose Calcium Total Bilirubin AST ALT Alkaline Phosphatase Total Protein Albumin Blood Type O Positive Antibody Screen Negative MTS Gel Crossmatch See Detail 05/13/18 04:38 WBC RBC Hgb Hct MCV MCH MCHC RDW Plt Count MPV Prelim Diff (Auto) Neut % (Auto) Lymph % (Auto) [place] % (Auto) Eos % (Auto) Baso % (Auto) Neut # (Auto) Lymph # (Auto) [place] # (Auto) Eos # (Auto) Baso # (Auto) WBC Differential Diff Scan Differential Comment Platelet Estimate Platelet Morphology Sickle Cells Target Cells Sodium 143 Potassium 3.7 Chloride 110 H Carbon Dioxide 26.5 Anion Gap 7 BUN 4 L Creatinine 0.43 L Estimated GFR Greater than 89 Random Glucose 80 Calcium 8.1 L Total Bilirubin 1.7 H AST 23 ALT 34 Alkaline Phosphatase 85 Total Protein 6.4 Albumin 3.4 Blood Type Antibody Screen MTS Gel Crossmatch - Procedures None Assessment and Plan - Plan 23-year-old female admitted secondary to acute sickle cell crisis. Decline in hemoglobin overnight. Current hemoglobin level 7.9. Will repeat an afternoon hemoglobin level. Continue present treatment as listed below. Consider blood transfusion based on afternoon hemoglobin level. Acute sickle cell crisis Follow clinically for improvement- appears comfortable Follow CBC- drop - can be from aggressive fluid hydration- julian any melena or hematochezia Hemoglobin not significantly increased in count yet Continue IV hydration Continue pain control DC Naproxen- with decrease H and H she ff up with Hematology in Dr.Marie mclaughlin in [facility]- called - left message in office Leukocytosis Likely reactive. afebrle Monitor CBC DVT prophylaxis SCDs
[2018-05-13] MEDS: Sod Chloride 0.9% Inj 1,000 ML IV.CONT SCH ×5 (14:03→20:53)
[2018-05-13 14:52] LABS: Hematocrit 21.5 % (35.0-46.0); Hemoglobin 7.5 gm/dL (11.6-15.3)
[2018-05-13] MEDS: Enoxaparin Inj 40 MG/0.4 ML Syringe SQ SCH (20:49)
[2018-05-14] MEDS: Sod Chloride 0.9% Inj 1,000 ML IV.CONT SCH (04:00)
[2018-05-14 06:18] LABS: Baso # (Auto) 0.1 th/mm3 (0.0-0.2); Baso % (Auto) 1.1 % (0.0-2.0); Eos # (Auto) 0.1 th/mm3 (0.0-0.4); Eos % (Auto) 0.8 % (0.0-4.0); Hematocrit 26.4 % (35.0-46.0); Hemoglobin 9.3 gm/dL (11.6-15.3); Lymph # (Auto) 2.6 th/mm3 (1.0-4.8); Lymph % (Auto) 24.3 % (9.0-44.0); Mean Corpuscular HGB Conc 35.4 % (32.0-36.0); Mean Corpuscular Hemoglobin 30.8 pg (27.0-34.0); Mean Corpuscular Volume 87.1 fL (80.0-100.0); Mean Platelet Volume 7.5 fL (7.0-11.0); Mono # (Auto) 0.7 th/mm3 (0.0-0.9); Mono % (Auto) 6.6 % (0.0-8.0); Neut # (Auto) 7.2 th/mm3 (1.8-7.7); Neut % (Auto) 67.2 % (16.0-70.0); Platelet Count 454 th/mm3 (150-450); Red Blood Count 3.03 mil/mm3 (4.00-5.30); Red Cell Distribution Width 18.8 % (11.6-17.2); White Blood Count 10.8 th/mm3 (4.0-11.0)
[2018-05-14 07:21] LABS: Eosinophils 2 % (0-4); Lymphocytes 21 % (9-44); Monocytes 6 % (0-8); Sickle Cells 2+; Tallied Nucleated RBC 9 (0-0); Target Cells 1+
[2018-05-14 07:22] LABS: Platelet Estimate Normal (Normal); Platelet Morphology Normal (Normal)
[2018-05-14 08:40] VITALS: BP 100/56; PULSE 69; RESP 18; TEMP 98; O2SAT 95
[2018-05-14] MEDS ORDERED: HYDROmorphone PF Inj 0.5 MG/0.5 ML Syringe IV.PUSH PRN (09:54)
[2018-05-14] MEDS: Gabapentin 300 MG Capsule PO SCH (10:01)
[2018-05-14] MEDS: Folic Acid 1 MG Tablet PO SCH (10:02)
[2018-05-14] MEDS: Hydroxyurea 500 MG Capsule PO SCH (10:02)
[2018-05-14] MEDS: Docusate Sodium 100 MG Capsule PO SCH (10:02)
--- NOTE | 2018-05-14 10:04 | P.PN ---
Subjective Interval history: afebr;e feels better no complains of nausea or vomting pain - controlled Physical Exam Vital signs: Vital Signs 05/13/18 12:00 05/13/18 17:19 05/13/18 17:40 Temperature 97.6 F 99.1 F 98.8 F Pulse Rate 69 72 78 Respiratory Rate 14 16 16 Blood Pressure 92/49 L 110/59 L 105/52 L Pulse Oximetry 92 L 96 05/13/18 20:00 05/13/18 23:49 05/14/18 08:00 Temperature 98.3 F 97.5 F L 98.0 F Pulse Rate 68 67 69 Respiratory Rate 20 19 18 Blood Pressure 97/53 L 114/58 L 100/56 L Pulse Oximetry 94 L 96 95 Intake & Output 05/13/18 05/14/18 05/14/18 18:59 06:59 18:59 Intake Total 250 / 250 2200 / 2200 Balance 250 / 250 2200 / 2200 Weight 52.6 kg Intake: IV 250 / 250 1000 / 1000 NS Inj 1,000 ML @ 100 mls/hr IV 250 / 250 1000 / 1000 .CONT .Q10H [facility] Rx#:[id number] Oral 800 / 800 Intake (Blood Product) Amt 0 / 0 400 / 400 Rbc As-3 Leukoreduced Unit 0 / 0 400 / 400 [id number] Other: # Voids 2 Date of Last Bowel Movement 05/09/18 Narrative: GENERAL: NAD, A&Ox3 HEAD: Normocephalic. NECK: Supple, trachea midline. No lymphadenopathy. EYES: No scleral icterus. No injection or drainage. CARDIOVASCULAR: Regular rate and rhythm without murmurs, gallops, or rubs. RESPIRATORY: Breath sounds equal bilaterally. No accessory muscle use. GASTROINTESTINAL: Abdomen soft, non-tender, nondistended. MUSCULOSKELETAL: No cyanosis, or edema. No significant swelling of lower back. SKIN: Warm and dry. NEURO: No focal neurological deficits. Results - Labs CBC & Chem 7: 05/14/18 05:58 05/13/18 04:38 Laboratory Results - last 24 hr 05/12/18 05/13/18 05/14/18 19:30 14:23 05:58 WBC 10.8 RBC 3.03 L Hgb 7.5 L 9.3 L Hct 21.5 L 26.4 L MCV 87.1 MCH 30.8 MCHC 35.4 RDW 18.8 H Plt Count 454 H MPV 7.5 Prelim Diff (Auto) Slide review pending Neut % (Auto) 67.2 Lymph % (Auto) 24.3 [place] % (Auto) 6.6 Eos % (Auto) 0.8 Baso % (Auto) 1.1 Neut # (Auto) 7.2 Lymph # (Auto) 2.6 [place] # (Auto) 0.7 Eos # (Auto) 0.1 Baso # (Auto) 0.1 WBC Differential Manual diff final Seg Neuts % (Manual) 71 H Lymphocytes % (Manual) 21 Monocytes % (Manual) 6 Eosinophils % (Manual) 2 Abs Neuts (Manual) 7.7 Nucleated RBCs/100 WBC 9 H Differential Comment . Platelet Estimate Normal Platelet Morphology Normal Sickle Cells 2+ H Target Cells 1+ H Blood Type O Positive Antibody Screen Negative MTS Gel Crossmatch See Detail Bld Prod Order Comment - Procedures None Assessment and Plan - Plan 23-year-old female admitted secondary to acute sickle cell crisis. Decline in hemoglobin overnight. Current hemoglobin level 7.9. Will repeat an afternoon hemoglobin level. Continue present treatment as listed below. Consider blood transfusion based on afternoon hemoglobin level. Acute sickle cell crisis Acute anemia - received 1 unit RBC - H and H improved Follow clinically for improvement- appears comfortable Follow CBC- drop - can be from aggressive fluid hydration- denies any melena or hematochezia Hemoglobin not significantly increased in count yet Continue pain control DC Naproxen- with decrease H and H she ff up with Hematology in Dr.Marie mclaughlin in [facility]- called - left message in office Leukocytosis Likely reactive. afebrle Monitor CBC DVT prophylaxis SCDs home today she will ff up with Dr. Mclaughlin in [facility] sdequate encourge fluids
--- NOTE | 2018-05-14 10:25 | P.DS ---
Date of admission: 05/09/18 21:22 Primary care physician: UNKNOWN Anticipated date of discharge: 05/14/18 Brief History from admission: 23 female with a history of sickle cell presented to the ER with complaints of back pain. She states the pain is a 8/10, constant, throbbing, to her lower back that radiates to her tail bone, with no associated symptoms, worse with movement and better with pain medications. She tried taking Motrin and oxycodone prior to coming to the ER with no relief. She denies any chest pain, sob, fever or chills. 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 Patient update on day of discharge: afebrile xcomfortable in no pain DS: Medications - Discharge Medications Prescriptions: hydrocodone-acetaminophen 1 tab PO Q6HR PRN #15 tab PRN Reason: Pain Scale 3 To 5 DS: Summary - Time Spent with Patient Total time spent providing and/or coordinating discharge services: - Quality: VTE Deep Vein Thrombosis/Pulmonary Embolism Present on Admission: No Exam Vital signs: Vital Signs 05/13/18 12:00 05/13/18 17:19 05/13/18 17:40 Temperature 97.6 F 99.1 F 98.8 F Pulse Rate 69 72 78 Respiratory Rate 14 16 16 Blood Pressure 92/49 L 110/59 L 105/52 L Pulse Oximetry 92 L 96 05/13/18 20:00 05/13/18 23:49 05/14/18 08:00 Temperature 98.3 F 97.5 F L 98.0 F Pulse Rate 68 67 69 Respiratory Rate 20 19 18 Blood Pressure 97/53 L 114/58 L 100/56 L Pulse Oximetry 94 L 96 95 Intake & Output 05/13/18 05/14/18 05/14/18 18:59 06:59 18:59 Intake Total 250 / 250 2200 / 2200 Balance 250 / 250 2200 / 2200 Weight 52.6 kg Intake: IV 250 / 250 1000 / 1000 NS Inj 1,000 ML @ 100 mls/hr IV 250 / 250 1000 / 1000 .CONT .Q10H [facility] Rx#:[id number] Oral 800 / 800 Intake (Blood Product) Amt 0 / 0 400 / 400 Rbc As-3 Leukoreduced Unit 0 / 0 400 / 400 [id number] Other: # Voids 2 Date of Last Bowel Movement 05/09/18 Results Procedures completed during hospitalization: None Labs on day of discharge: Labs from last 24 hours 05/14/18 05/13/18 05/12/18 05:58 14:23 19:30 WBC 10.8 RBC 3.03 L Hgb 9.3 L 7.5 L Hct 26.4 L 21.5 L MCV 87.1 MCH 30.8 MCHC 35.4 RDW 18.8 H Plt Count 454 H MPV 7.5 Prelim Diff (Auto) Slide review pending Neut % (Auto) 67.2 Lymph % (Auto) 24.3 [place] % (Auto) 6.6 Eos % (Auto) 0.8 Baso % (Auto) 1.1 Neut # (Auto) 7.2 Lymph # (Auto) 2.6 [place] # (Auto) 0.7 Eos # (Auto) 0.1 Baso # (Auto) 0.1 WBC Differential Manual diff final Seg Neuts % (Manual) 71 H Lymphocytes % (Manual) 21 Monocytes % (Manual) 6 Eosinophils % (Manual) 2 Abs Neuts (Manual) 7.7 Nucleated RBCs/100 WBC 9 H Differential Comment . Platelet Estimate Normal Platelet Morphology Normal Sickle Cells 2+ H Target Cells 1+ H Blood Type O Positive Antibody Screen Negative MTS Gel Crossmatch See Detail Bld Prod Order Comment Discharge Plan - Discharge Disposition Patient Disposition: Discharge Home - Discharge Condition Condition: Stable - Discharge Order Discharge Orders: Discharge Order (Routine); Ordered 05/14/18 Ordered By: Uma Holt - Discharge Details Anticipated Discharge Date: 05/14/18 - Physicians Team Primary Care Provider: UNKNOWN, Attending Provider: Uma Holt
== END 2018-05-14 11:14 | disposition home or self-care (01) | DRG 812 ==
LOC: NEPC 16:27 → NEDA 16:27 → H7ONC 05-10 01:05 → N07 05-10 15:52
PROVIDERS: ADMIT Internal Medicine; ATTEND Internal Medicine
CPT/HCPCS: 36430; 76937; 80048; 80053; 81001; 83735; 84100; 84439; 84443; 84703; 85014; 85018; 85025; 85044; 86850; 86900; 86901; 86902; 86923; J1170; J1650; J1885; J2405; J7030; J7050; P9016